=== PATIENT | female | born 2000 | race Caucasian/White ===

== ENCOUNTER 2024-11-04 01:48 | Emergency (ER) | payer MEDICAID ==
[~2024-11-04] VITALS: Ht 157.5 cm; Wt 59.0 kg
[2024-11-04 03:05] VITALS: O2SAT 98
[2024-11-04] MEDS: ACETAMINOPHEN 500MG TABLET PO ONE (03:39)
[2024-11-04] MEDS ORDERED: BO1 TP (05:19)
[2024-11-04] MEDS ORDERED: IBUP-2029 MT (05:19)
[2024-11-04] MEDS ORDERED: AMOX1TAB16 MT (05:19)
[2024-11-04 07:42] VITALS: BP 126/85; PULSE 99; RESP 18; TEMP 36.6; O2SAT 98
== END 2024-11-04 09:35 | disposition home or self-care (01) ==
LOC: ER 01:57
DX: S02.2XXA Fracture of nasal bones, initial encounter for closed fracture (principal); S60.221A Contusion of right hand, initial encounter; F10.129 Alcohol abuse with intoxication, unspecified; X58.XXXA Exposure to other specified factors, initial encounter; Y93.89 Activity, other specified; Y92.89 Other specified places as the place of occurrence of the external cause; Y99.8 Other external cause status
CPT/HCPCS: 81025; 73130; 70450; 70486; 72125; 12001; 99284; Z7610